=== PATIENT | male | born 1975 | race Caucasian/White ===

== ENCOUNTER 2021-01-07 07:47 | Emergency (ER) | payer OTHER, SELFPAY ==
[~2021-01-07] VITALS: Ht 172.7 cm; Wt 81.2 kg
[2021-01-07 07:48] VITALS: BP 149/94
[2021-01-07] MEDS ORDERED: DIAZEPAM 5 MG TABLET ONE (08:16)
[2021-01-07] MEDS ORDERED: KETOROLAC 30 MG/1 ML ONE (08:16)
[2021-01-07] MEDS ORDERED: DIAZEPAM 5 MG TABLET PO ONE (08:30)
[2021-01-07] MEDS ORDERED: KETOROLAC 30 MG/1 ML IM ONE (08:30)
[2021-01-07] MEDS ORDERED: OXYcodone/APAP 5/325MG TABLET PO ONE (09:00)
[2021-01-07] MEDS ORDERED: OXYcodone/APAP 5/325MG TABLET ONE (09:03)
== END 2021-01-07 09:37 | disposition home or self-care (01) ==
LOC: ED 08:35
DX: S39.012A Strain of muscle, fascia and tendon of lower back, initial encounter (principal); F17.210 Nicotine dependence, cigarettes, uncomplicated; X58.XXXA Exposure to other specified factors, initial encounter; Y93.89 Activity, other specified; Y92.009 Unspecified place in unspecified non-institutional (private) residence as the place of occurrence of the external cause; Y99.8 Other external cause status
CPT/HCPCS: 73030; 96372; 99283; J1885